=== PATIENT | male | born 1960 | race African-American/Black ===

== ENCOUNTER 2017-07-15 23:39 | Emergency (ER) | payer MEDICAID ==
[~2017-07-15] VITALS: Ht 177.8 cm; Wt 90.0 kg
[2017-07-16] MEDS ORDERED: HYDROCODONE/ACETAMINOPHEN 5/325MG TABLET PO ONE (00:45)
[2017-07-16 00:55] VITALS: BP 122/65
== END 2017-07-16 01:09 | disposition home or self-care (01) ==
LOC: ER 23:39
DX: G89.29 Other chronic pain (principal); M79.671 Pain in right foot; M79.672 Pain in left foot; M79.642 Pain in left hand; M79.641 Pain in right hand; M54.9 Dorsalgia, unspecified; M25.519 Pain in unspecified shoulder; R42 Dizziness and giddiness; E11.9 Type 2 diabetes mellitus without complications; H40.9 Unspecified glaucoma; F32.9 Major depressive disorder, single episode, unspecified; F17.210 Nicotine dependence, cigarettes, uncomplicated
CPT/HCPCS: 99283

== ENCOUNTER 2023-09-18 08:00 | Emergency (ER) | payer MEDICAID ==
[~2023-09-18] VITALS: Ht 172.7 cm; Wt 88.0 kg
[2023-09-18 08:07] VITALS: TEMP 97.9; O2SAT 100
[2023-09-18 08:50] LABS: BASOPHILS % 0.9 % (0.0-2.0); EOSINOPHILS % 4.1 % (0.0-5.0); HEMATOCRIT. 44.2 % (42.0-52.0); LYMPHOCYTES % 23.6 % (20.0-50.0); MEAN CORPUSCULAR HEMOGLOBIN 33.7 pg (28.0-32.0); MEAN CORPUSCULAR HGB CONC 33.8 g/dL (31.0-37.0); MEAN CORPUSCULAR VOLUME 99.6 fL (80.0-94.0); MEAN PLATELET VOLUME 9.8 fl (7.4-10.4); MONOCYTES % 8.8 % (2.0-8.0); NEUTROPHILS % 62.6 % (40.0-76.0); PLATELET 190 x1000/uL (130-400); RED BLOOD CELL COUNT 4.44 mill/uL (4.7-6.1); RED CELL DISTRIBUTION WIDTH 15.2 % (11.6-14.6); WHITE BLOOD COUNT 6.3 x1000/uL (4.5-11.0)
[2023-09-18 08:51] LABS: CHLORIDE 110 mEq/L (98-107); POTASSIUM 4.1 mEq/L (3.5-5.1); SODIUM 144 mEq/L (136-145)
[2023-09-18 08:52] LABS: CALCIUM 8.9 mg/dL (8.7-10.4); CARBON DIOXIDE 28 mEq/L (21-32)
[2023-09-18 08:57] LABS: CREATININE 1.2 mg/dL (0.6-1.3); GLUCOSE 106 mg/dL (70-105); UREA NITROGEN BLOOD 12 mg/dL (9-23)
[2023-09-18 08:58] LABS: TROPONIN I HIGH SENSITIVITY 14 ng/L (3.0-53)
[2023-09-18 08:59] LABS: ALANINE AMINOTRANSFERASE 24 IU/L (10-49); ALBUMIN 4.5 g/dL (3.2-4.8); ASPARTATE AMINOTRANSFERASE 24 IU/L (<34); PROTEIN TOTAL 7.8 g/dL (6.0-8.3)
[2023-09-18 10:58] LABS: TROPONIN I HIGH SENSITIVITY 12 ng/L (3.0-53)
[2023-09-18] MEDS: HYDRALAZINE HCL 25MG TABLET PO ONE (11:14)
[2023-09-18] MEDS: CLONIDINE 0.1MG TABLET PO ONE (11:14)
[2023-09-18 11:50] VITALS: BP 181/80; PULSE 63; RESP 16
== END 2023-09-18 11:53 | disposition home or self-care (01) ==
LOC: ER 08:00 → CANBEDREQ 11:10 → ER 11:53
DX: I10 Essential (primary) hypertension (principal); R07.89 Other chest pain; F17.210 Nicotine dependence, cigarettes, uncomplicated; F12.10 Cannabis abuse, uncomplicated; F32.9 Major depressive disorder, single episode, unspecified; E11.9 Type 2 diabetes mellitus without complications; H40.9 Unspecified glaucoma
CPT/HCPCS: 80053; 85025; 84484; 36415; 71045; 70450; 93005; 99291; Z7610

== ENCOUNTER 2024-08-19 18:03 | Emergency (ER) | payer MEDICAID ==
[~2024-08-19] VITALS: Ht 177.8 cm; Wt 82.0 kg
[2024-08-19 18:06] VITALS: O2SAT 99
[2024-08-19 18:14] VITALS: TEMP 36.8; O2SAT 100
[2024-08-19 19:45] VITALS: BP 190/90; PULSE 100; RESP 20
[2024-08-19] MEDS: KETOROLAC 30MG/ML VIAL IM ONE (19:45)
[2024-08-19] MEDS ORDERED: IBUP-2030 MT (19:56)
== END 2024-08-19 20:00 | disposition home or self-care (01) ==
LOC: ER 18:03
DX: M79.641 Pain in right hand (principal); I10 Essential (primary) hypertension; F12.10 Cannabis abuse, uncomplicated; E11.9 Type 2 diabetes mellitus without complications; F32.A Depression, unspecified; Z98.890 Other specified postprocedural states
CPT/HCPCS: 96372; 99283; J1885; Z7610

== ENCOUNTER 2024-08-26 09:55 | Emergency (ER) | payer MEDICAID ==
[~2024-08-26] VITALS: Ht 177.8 cm; Wt 82.0 kg
[~2024-08-26 09:55] MED LIST: IBUP-2030 MT
[2024-08-26 09:59] VITALS: O2SAT 99
[2024-08-26 10:15] VITALS: BP 200/96; PULSE 92; RESP 20; TEMP 36.9; O2SAT 100
[2024-08-26 11:19] LABS: BASOPHILS % 0.9 % (0.0-2.0); DIFFERENTIAL COMMENT 0; EOSINOPHILS % 3.1 % (0.0-5.0); HEMATOCRIT. 35.9 % (42.0-52.0); HEMOGLOBIN. 12.1 g/dL (14.0-18.0); MEAN CORPUSCULAR HEMOGLOBIN 33.4 pg (28.0-32.0); MEAN CORPUSCULAR HGB CONC 33.7 g/dL (31.0-37.0); MEAN CORPUSCULAR VOLUME 99.2 fL (80.0-94.0); MEAN PLATELET VOLUME 8.9 fl (7.4-10.4); MONOCYTES % 9.6 % (2.0-8.0); NEUTROPHILS % 61.4 % (40.0-76.0); PLATELET 233 x1000/uL (130-400); RED BLOOD CELL COUNT 3.62 mill/uL (4.7-6.1); RED CELL DISTRIBUTION WIDTH 14.4 % (11.6-14.6)
[2024-08-26 11:28] LABS: CHLORIDE 109 mEq/L (98-107); POTASSIUM 3.7 mEq/L (3.5-5.1); SODIUM 143 mEq/L (136-145)
[2024-08-26 11:29] LABS: CALCIUM 9.4 mg/dL (8.7-10.4); CARBON DIOXIDE 28 mEq/L (21-32)
[2024-08-26 11:34] LABS: CREATININE 0.9 mg/dL (0.6-1.3); GLUCOSE 111 mg/dL (70-105); UREA NITROGEN BLOOD 13 mg/dL (9-23)
[2024-08-26] MEDS ORDERED: TOPUD PO (12:33)
[2024-08-26] MEDS ORDERED: MUPI15CR11 TP (12:34)
== END 2024-08-26 12:55 | disposition home or self-care (01) ==
LOC: ER 09:55
DX: M25.531 Pain in right wrist (principal); R21 Rash and other nonspecific skin eruption; F12.10 Cannabis abuse, uncomplicated; E11.9 Type 2 diabetes mellitus without complications; I10 Essential (primary) hypertension; F32.A Depression, unspecified; Z98.890 Other specified postprocedural states
CPT/HCPCS: 36415; 73110; 80048; 85025; 99284